=== PATIENT | female | born 1960 | race Caucasian/White ===

== ENCOUNTER 2021-05-13 03:48 | Emergency (ER) | payer OTHER, SELFPAY ==
[2021-05-13 03:57] VITALS: BP 115/83; PULSE 76; RESP 18; TEMP 36.8; O2SAT 100
--- NOTE | 2021-05-13 04:15 | RT.EKG_ITS ---
APPROVED REPORT Exam: Resting ECG Reason for Exam: left upper abd pain Patient Location: E HR:65 bpm ECG Measurements Heart Rate 65 AXIS MD 177 P 76 QRSd 100 QRS 73 QT 400 T 27 QTc 416 Conclusion Sinus rhythm...normal P axis, V-rate 60- 99 Probable left atrial enlargement...P >50mS, <-0.10mV V1
--- NOTE | 2021-05-13 04:17 | ED.GENADUL_ITS ---
Discharge Plan Disposition Patient Disposition: HOME Condition: Improving Discharge Details Clinical Impression: Resolved abdominal pain Primary Care Provider: Radha,Local ED Provider: Roger Fletcher Home Meds and New Rx's Prescriptions: Continued magnesium Tablet 1 tab PO DAILY RF: 0 calcium 100 mg Capsule 100 mg PO DAILY RF: 0 Discharge Instructions Additional Instructions: Home to rest. Return if you develop a fever, vomiting, recurrent pain, bloody urine, or any other acute concerns Your work-up today included urinalysis, complete blood count, comprehensive metabolic panel, troponin I, and a D-dimer. Medical Decision Making 70-year-old female states she was awakened by the abrupt onset of left upper quadrant abdominal pain that is been sharp and somewhat coming in waves. Also seems to be worse with movement and with deep breaths. She arrives to the ER in some discomfort but with unremarkable vital signs. Differential diagnosis includes renal colic, must consider pleuritic component to her discomfort. Patient had IV access established, referred for laboratory testing and urinalysis. Shortly after IV access was established patient's pain completely resolved on its own. Her laboratories are reassuring with a white count of 3.9, hematocrit 46, platelets 301. Chemistries unremarkable, troponin negative, D-dimer within normal limits. Urine notable for ketones. Discussed with her that I feel there is no indication to pursue further work-up given resolution of her symptoms. HPI General Mode of arrival: ambulatory . Date/Time Provider Initiated Documentation: 05/13/21 03:59 . Limitations to Documentation: no limitations . Information obtained by: patient . History of Present Illness 60 year old F presents to the emergency department with the chief complaint of Left upper abdominal pain, described as moderate, and is localized to the chest, abdomen and left. Patient reports no radiation. Patient started experiencing this hour(s) and it has been constant. No relieving factors improve symptom(s), Movement worsens symptoms and Other factors that worsen symptoms (Deep breath) . Patient notes denies chest pain, fever/chills and shortness of breath. Patient did receive the following treatments prior to arrival, none Related Data Home Medications Medication Instructions Recorded Confirmed calcium 100 mg PO DAILY 05/13/21 05/13/21 magnesium 1 tab PO DAILY 05/13/21 05/13/21 Allergies Allergy/AdvReac Type Severity Reaction Status Date / Time Sulfa (Sulfonamide Allergy Unverified 05/13/21 04:08 Antibiotics) morphine AdvReac Agitation Unverified 05/13/21 04:11 General Stated Complaint: Abd Prob SUE: 2 Review of Systems Narrative: Denies leg pain or swelling. No prolonged immobilization. No change to urine pattern. No vomiting. 8 systems reviewed and otherwise negative [facility] Social History Smoking/Tobacco Use Status: Never Smoking risk assessment performed?: Yes Drug use: Never Substance use type: does not use Do you feel safe at home: Yes Do you feel safe in your relationship?: Yes Exam Narrative Exam Narrative: GEN: awake, alert, oriented 3. Pleasant, well groomed, interactive. HEAD: Normocephalic, atraumatic ENT: Mucous membranes moist, oropharynx unremarkable, External ear exam unremarkable EYES: PERRL, EOMI NECK: Full ROM, no ILIANA, no menigismus CHEST/RESP: Nontender, clear to auscultation bilateral, no wheeze/rhonchi/rales CARDIOVASCULAR: RRR, no murmur, rub nichole. 2+ Rad pulse bilateral Flank: Nontender to percussion ABDOMEN: Soft, nontender, no mass. +Bowel sounds EXT: Full ROM, no edema, no rash Neuro: Grossly normal neurologic exam, conversant, interactive. Psych: Speech fluent, thoughts congruent, affect normal Course Vital Signs Vital signs: Vital Signs Temperature 36.8 C 05/13/21 03:57 Pulse 76 05/13/21 03:57 Respiratory Rate 18 05/13/21 03:57 Blood Pressure 115/83 05/13/21 03:57 Pulse Oximetry 100 05/13/21 03:57 Temperature 36.8 C 05/13/21 03:57 Temperature Source Temporal Artery Scan 05/13/21 03:57 Pulse 76 05/13/21 03:57 Respiratory Rate 18 05/13/21 03:57 Blood Pressure 115/83 05/13/21 03:57 Blood Pressure Position Sitting 05/13/21 03:57 Pulse Oximetry 100 05/13/21 03:57 Oxygen Delivery Method Room Air 05/13/21 03:57 Oxygen Flow Rate 0 05/13/21 03:57 Pain Level 8 05/13/21 03:57
[2021-05-13 04:31] LABS: Abs Immature Grans 0.01 10^3/uL (0.0-0.06); Absolute Basophil Count 0.04 10^3/uL (0.0-0.2); Absolute Eosinophil Count 0.11 10^3/uL (0.0-0.7); Absolute Lymphocyte Count 1.35 10^3/uL (1.2-3.4); Absolute Monocyte Count 0.31 10^3/uL (0.1-0.8); Absolute Neutrophil Count 2.16 10^3/uL (1.2-6.7); Eosinophils % 2.8; HCT 46.3 % (36.0-46.0); HGB 15.7 g/dL (11.2-15.7); Immature Grans % 0.3; Lymphocytes % 33.9; MCH 31.5 pg (27.0-33.0); MCHC 33.9 % (32.0-36.0); MPV 9.7 fL (8.0-11.0); Monocytes % 7.8; Neutrophils % 54.2; Nucleated RBC 0 %; Platelet Count 301 10^3/uL (130-400); RBC 4.98 10^6/uL (3.93-5.22); RDW 11.8 % (11.7-14.6); RDW-SD 40.1 fL; WBC 3.98 10^3/uL (4.4-10.8)
[2021-05-13 04:33] LABS: Bilirubin Negative (Negative); Blood Trace-intact (Negative); Clarity Clear (Clear); Glucose Negative (Negative); Ketones 15 mg/dL (Negative); Leukocyte Esterase Negative (Negative); Nitrite Negative (Negative); Specific Gravity 1.025 (1.005-1.025); Urobilinogen 0.2 EU/dL (Up TO 0.2)
[2021-05-13 04:42] LABS: Bacteria Few HPF (Negative); C & S Indicated? No; Casts Negative LPF (Negative); Crystals Negative HPF (Negative); Epithelial Cells Few HPF (Negative); Mucus Negative (Negative); RBC 0-2 HPF (0-2); WBC 0-2 HPF (0-5)
[2021-05-13 04:53] LABS: ALT 30 U/L (14-59); AST 20 U/L (15-37); Albumin 4.3 g/dL (3.4-5.0); Alkaline Phosphatase 94 U/L (46-116); Anion Gap 9.2 mmol/L (3-11); BUN 15 mg/dL (7-18); Bilirubin, Total 0.6 mg/dL (0.2-1.0); CO2 28.8 mmol/L (21.0-32.0); CREATININE 0.7 mg/dL (0.55-1.02); Calcium 9.1 mg/dL (8.5-10.1); Chloride 105 mmol/L (98-107); Glucose 91 mg/dL (74-106); Magnesium 2.5 mg/dL (1.8-2.4); Potassium 3.8 mmol/L (3.5-5.1); Sodium 143 mmol/L (136-145); Total Protein 6.5 g/dL (6.4-8.2)
[2021-05-13 04:55] LABS: Troponin I < 0.05 ng/mL (<0.06)
[2021-05-13 05:14] LABS: D-Dimer 181 ng/mlFEU (<500)
[2021-05-13 05:30] VITALS: BP 121/90; PULSE 77; RESP 16; O2SAT 99
== END 2021-05-13 05:31 | disposition home or self-care (01) ==
PROVIDERS: Emergency Provider Emergency Medicine
DX: R10.12 Left upper quadrant pain (principal)
CPT/HCPCS: 80053; 93005; 99283; 81003; 81015; 83735; 84484; 85025; 85379; 93010

== ENCOUNTER 2021-08-25 01:58 | Outpatient (CLI) | payer OTHER, SELFPAY ==
[2021-08-25 10:17] LABS: Anion Gap 9.2 mmol/L (3-11); BUN 12 mg/dL (7-18); CO2 28.8 mmol/L (21.0-32.0); CREATININE 0.6 mg/dL (0.55-1.02); Calcium 9.1 mg/dL (8.5-10.1); Calculated LDL 126 mg/dL (<100); Chloride 106 mmol/L (98-107); Cholesterol 213 mg/dL (<200); Glucose 88 mg/dL (74-106); HDL Cholesterol 73 mg/dL (40-60); Potassium 4.2 mmol/L (3.5-5.1); Sodium 144 mmol/L (136-145); TSH 1.65 uIU/mL (0.36-3.74); Triglyceride 74 mg/dL (<150)
[2021-08-26 09:41] LABS: Parathyroid Hormone,Intact 50 pg/mL (19-88)
[2021-08-27 00:14] LABS: Vitamin D 25 Total 27.9 ng/mL (30-100)
== END 2021-08-25 01:59 | disposition home or self-care (01) ==
LOC: LBO 01:58
PROVIDERS: Visit Provider Family Medicine
DX: M81.0 Age-related osteoporosis without current pathological fracture (principal); Z00.00 Encounter for general adult medical examination without abnormal findings
CPT/HCPCS: 36415; 80048; 80061; 82306; 83970; 84443